=== PATIENT | female | born 1955 | race Two or more races ===

== ENCOUNTER 2024-09-13 07:51 | Outpatient (CLI) | payer MEDICAID ==
[2024-09-13 08:20] LABS: Urine Protein, UAD Negative (Negative)
[2024-09-13 08:21] LABS: Hematocrit 39.6 % (36.0-46.0); Hemoglobin 13.5 g/dL (12.2-16.2); Mean Corpuscular Hemoglobin 32.0 pg (28.0-32.0); Mean Corpuscular Volume 93.9 fL (80.0-100.0); Nucleated Red Blood Cells % 0.1 %
[2024-09-13 08:54] LABS: Alanine Aminotransferase 11 U/L (7-40); Albumin 4.5 g/dL (3.2-4.8); Alkaline Phosphatase 56 U/L (46-116); Anion Gap 7 (5-15); BUN/Creatinine Ratio 14.1 (10.0-20.0); Blood Urea Nitrogen 12 mg/dL (9-23); Calcium 10.0 mg/dL (8.7-10.4); Carbon Dioxide 27 mmol/L (20-31); Chloride 106 mmol/L (98-107); Glucose 80 mg/dL (74-106); Magnesium 1.8 mg/dL (1.6-2.6); Potassium 3.8 mmol/L (3.5-5.1); Sodium 140 mmol/L (136-145); Total Protein 7.3 g/dL (5.7-8.2); Triglycerides 147 mg/dL (< 150)
[2024-09-13 08:55] LABS: Bilirubin, Total 0.4 mg/dL (0.2-1.0); Cholesterol 197 mg/dL (< 200)
[2024-09-13 09:14] LABS: Iron 96.0 ug/dL (50-170)
[2024-09-13 09:15] LABS: HDL Cholesterol 70 mg/dL (40-59)
[2024-09-13 09:17] LABS: Total Iron Binding Capacity 313.0 ug/dL (250-425)
[2024-09-13 09:21] LABS: Free T3 2.77 pg/mL (2.3-4.2)
[2024-09-13 09:23] LABS: Free T4 (Free Thyroxine) 0.98 ng/dL (0.89-1.76)
[2024-09-13 09:27] LABS: Uric Acid 3.3 mg/dL (3.1-7.8)
== END 2024-09-13 17:00 | disposition home or self-care (01) ==
LOC: LAB 07:51
PROVIDERS: ATTEND Family Medicine
DX: E11.9 Type 2 diabetes mellitus without complications (principal); Z00.00 Encounter for general adult medical examination without abnormal findings; Z71.89 Other specified counseling; Z68.26 Body mass index [BMI] 26.0-26.9, adult
CPT/HCPCS: 36415; 80053; 80061; 81001; 82306; 82607; 83036; 83540; 83550; 83735; 84403; 84439; 84443; 84480; 84481; 84550; 85025; 87086

== ENCOUNTER 2024-11-22 08:27 | Outpatient (CLI) | payer MEDICAID ==
[2024-11-22 08:53] LABS: Urine Protein, UAD Negative (Negative)
[2024-11-22 09:09] LABS: Alanine Aminotransferase 10 U/L (7-40); Albumin 4.5 g/dL (3.2-4.8); Alkaline Phosphatase 60 U/L (46-116); Anion Gap 7 (5-15); BUN/Creatinine Ratio 14.3 (10.0-20.0); Blood Urea Nitrogen 14 mg/dL (9-23); Calcium 9.7 mg/dL (8.7-10.4); Carbon Dioxide 26 mmol/L (20-31); Chloride 106 mmol/L (98-107); Cholesterol 145 mg/dL (< 200); Sodium 139 mmol/L (136-145); Total Protein 7.6 g/dL (5.7-8.2); Triglycerides 122 mg/dL (< 150)
[2024-11-22 09:10] LABS: Bilirubin, Total 0.4 mg/dL (0.2-1.0)
[2024-11-22 09:15] LABS: Glucose 114 mg/dL (74-106); HDL Cholesterol 77 mg/dL (40-59); Potassium 5.2 mmol/L (3.5-5.1)
== END 2024-11-22 17:00 | disposition home or self-care (01) ==
LOC: LAB 08:27
PROVIDERS: ATTEND Family Medicine
DX: E78.2 Mixed hyperlipidemia (principal); N39.0 Urinary tract infection, site not specified; K21.9 Gastro-esophageal reflux disease without esophagitis
CPT/HCPCS: 36415; 80053; 80061; 81001; 83036; 87086

== ENCOUNTER 2024-12-10 11:07 | Outpatient (CLI) | payer MEDICAID ==
[2024-12-10 12:37] LABS: Chloride 105 mmol/L (98-107); Potassium 5.0 mmol/L (3.5-5.1); Sodium 142 mmol/L (136-145)
[2024-12-10 12:38] LABS: Anion Gap 8 (5-15); Calcium 10.0 mg/dL (8.7-10.4); Carbon Dioxide 29 mmol/L (20-31)
[2024-12-10 12:43] LABS: BUN/Creatinine Ratio 16.5 (10.0-20.0); Blood Urea Nitrogen 16 mg/dL (9-23); Glucose 190 mg/dL (74-106)
[2024-12-10 12:45] LABS: Microalb/Creat Ratio, Urine 5.00
== END 2024-12-10 17:00 | disposition home or self-care (01) ==
LOC: LAB 11:07
PROVIDERS: ATTEND Family Medicine
DX: E11.9 Type 2 diabetes mellitus without complications (principal)
CPT/HCPCS: 36415; 80048; 82043; 82570